=== PATIENT | female | born 1990 | race Caucasian/White ===

== ENCOUNTER 2017-05-09 13:23 | Emergency (ER) | payer MEDICAID, OTHER ==
[~2017-05-09] VITALS: Ht 160 cm; Wt 61.9 kg
[~2017-05-09 13:23] MED LIST: LORA-205
[2017-05-09 13:58] VITALS: BP 124/84
== END 2017-05-09 14:41 | disposition home or self-care (01) ==
LOC: ER 13:29
DX: A60.00 Herpesviral infection of urogenital system, unspecified (principal); L73.9 Follicular disorder, unspecified

== ENCOUNTER 2017-08-28 00:42 | Emergency (ER) | payer MEDICAID, OTHER ==
[~2017-08-28] VITALS: Ht 160 cm; Wt 56.7 kg
[2017-08-28 01:10] VITALS: BP 127/70
[2017-08-28] MEDS ORDERED: KETOROLAC TROMETH 60MG/2ML VIAL IM ONE (01:15)
== END 2017-08-28 02:17 | disposition home or self-care (01) ==
LOC: ER 00:45
DX: J40 Bronchitis, not specified as acute or chronic (principal)
CPT/HCPCS: 71020; 81025; 96372